=== PATIENT | female | born 1955 | race Two or more races ===

== ENCOUNTER → 2020-11-06 | Outpatient (CLI) | payer MEDICARE ==
[~2020-11-06] MED LIST: CALC-694 PO; FENO54TA17 PO; METF500T27 PO
[2020-11-06 12:44] LABS: ALBUMIN 4.2 g/dL (3.4-5.0); ANION GAP 3 mmol/L (5-15); CALCIUM 9.6 mg/dL (8.5-10.1); CHLORIDE 110 mmol/L (98-107)
[2020-11-06 12:47] LABS: ALANINE AMINOTRANSFERASE 31 U/L (12-78); ALKALINE PHOSPHATASE 67 U/L (45-117); BILIRUBIN,TOTAL 0.3 mg/dL (0.2-1.0); CREATININE 1.07 mg/dL (0.55-1.02); TOTAL PROTEIN 8.5 g/dL (6.4-8.2)
== END | disposition home or self-care (01) ==
LOC: STAR 10:54
PROVIDERS: ATTEND Orthopaedic Surgery
DX: Z01.818 Encounter for other preprocedural examination (principal); T84.85 Stenosis due to internal orthopedic prosthetic devices, implants and grafts; M25.521 Pain in right elbow; Y83.8 Other surgical procedures as the cause of abnormal reaction of the patient, or of later complication, without mention of misadventure at the time of the procedure; Z20.828 Contact with and (suspected) exposure to other viral communicable diseases
CPT/HCPCS: 80053; 87635; 93005

== ENCOUNTER 2020-11-12 11:24 | Day surgery (SDC) | payer MEDICARE ==
[~2020-11-12] VITALS: Ht 152.4 cm; Wt 78.2 kg
[~2020-11-12 11:24] MED LIST changes: +BUPIVACAINE/PF 0.5% ONE; +EPHEDRINE 50 MG/ML, 1ML IVPush PRN; +EPINEPHRINE 1 MG/ML, 1ML ONE; +FENTANYL PF 100 MCG/2ML IV PRN; +HYDROmorphone 1 MG/ML, 1ML INJ IVPush PRN; +LABETALOL 5MG/ML, 20ML IV PRN; +ONDANSETRON 2MG/ML, 2ML IVPush PRN; +OXYcodone 5 MG/5 ML ORAL.SOL UDC PO PRN; +PROMETHAZINE 25 MG/ML, 1ML IVPush PRN; +hydrALAzine 20 MG/ML, 1ML IV PRN
[2020-11-12] MEDS ORDERED: LACTATED RINGERS 1,000 ML IV SCH (12:30)
[2020-11-12] MEDS ORDERED: ACETAMINOPHEN 500 MG TABLET PO ONE (12:30)
[2020-11-12] MEDS ORDERED: CHLORHEXIDINE 15 ML UDC MM ONE (12:30)
[2020-11-12] MEDS ORDERED: FENTANYL PF 100 MCG/2ML ONE (13:00)
[2020-11-12] MEDS ORDERED: ONDANSETRON 2MG/ML, 2ML ONE (13:05)
[2020-11-12] MEDS ORDERED: SODIUM CHLORIDE 0.9% PF 10ML ONE (13:05)
[2020-11-12] MEDS ORDERED: DEXAMETHASONE 4 MG/ML, 1ML ONE (13:05)
[2020-11-12] MEDS ORDERED: PROPOFOL 10 MG/ML, 20ML ONE (13:05)
[2020-11-12] MEDS ORDERED: KETOROLAC 30 MG/1 ML ONE (13:05)
[2020-11-12] MEDS ORDERED: CEFAZOLIN 1,000 MG ONE (13:05)
[2020-11-12] MEDS ORDERED: LIDOCAINE-MPF 2% ,5ML ONE (13:05)
[2020-11-12] MEDS ORDERED: EPHEDRINE 50 MG/ML, 1ML ONE (13:48)
[2020-11-12] MEDS ORDERED: PHENYLEPHRINE 10 MG/ML ONE (14:04)
== END 2020-11-12 16:55 | disposition home or self-care (01) ==
LOC: OUT 11:24
PROVIDERS: ATTEND Orthopaedic Surgery
DX: T84.612A Infection and inflammatory reaction due to internal fixation device of right radius, initial encounter (principal); E11.9 Type 2 diabetes mellitus without complications; E78.5 Hyperlipidemia, unspecified; Z79.84 Long term (current) use of oral hypoglycemic drugs; Z79.899 Other long term (current) drug therapy; Y92.89 Other specified places as the place of occurrence of the external cause; Y83.8 Other surgical procedures as the cause of abnormal reaction of the patient, or of later complication, without mention of misadventure at the time of the procedure
CPT/HCPCS: 20680; 73070; 82962; 87015; 87070; 87075; 87077; 87102; 87116; 87186; 87205; 87206; J0171; J0690; J1100; J1885; J2370; J2405; J2704; J3010; J7120